=== PATIENT | female | born 1960 | race Hispanic/Latino ===

== ENCOUNTER 2018-08-14 13:56 | Inpatient (IN) | payer OTHER ==
[~2018-08-14] VITALS: Ht 154.9 cm; Wt 75.0 kg
[2018-08-14] MEDS: SODIUM CHLORIDE 0.9% 1000ML 1,000 ML IV SCH (03:00)
[~2018-08-14 13:56] MED LIST: AMLODIPINE PO; ASPI-1197 PO; ATOR10 PO; DULO60CA63 PO; LORA10TA7 PO; METF-444 PO
[2018-08-14 14:42] LABS: BASOPHILS % (AUTO) 1.9 % (0.0-5.0); EOSINOPHILS % (AUTO) 1.7 % (0.0-8.0); HEMATOCRIT 21.8 % (36-48); LYMPHOCYTES % (AUTO) 19.8 % (21.0-51.0); MEAN CORPUSCULAR HEMOGLOBIN 22.4 pg (27.0-33.0); MEAN CORPUSCULAR HGB CONC 30.2 g/dL (32.0-36.0); MEAN CORPUSCULAR VOLUME 74.4 fL (79-99); NEUTROPHILS % (AUTO) 65.6 % (40.0-77.0); PLATELET COUNT (AUTO) 192 K/uL (130-400); RED BLOOD CELL COUNT(AUTO) 2.92 MIL/uL (4.00-5.50); RED CELL DISTRIBUTION WIDTH 21.3 % (11.0-15.5); WHITE BLOOD COUNT (AUTO) 3.1 K/uL (4.8-10.8)
[2018-08-14 14:50] LABS: CREATININE 0.7 mg/dL (0.5-1.5); POTASSIUM 3.9 mmol/L (3.5-5.1)
[2018-08-14 14:55] LABS: ALBUMIN 2.1 g/dL (3.5-5.0); BILIRUBIN,TOTAL 1.1 mg/dL (0.2-1.0); TOTAL PROTEIN, SERUM 8.6 g/dL (6.0-8.3)
[2018-08-14] MEDS ORDERED: IOHEXOL-350 75 ML VIAL IV ONE (15:00)
[2018-08-14 15:02] LABS: APPEARANCE,URINE Clear (CLEAR); BILIRUBIN,URINE Moderate (NEGATIVE); COLOR,URINE Dark Yellow (YELLOW); GLUCOSE, URINE (UA) Negative (NEGATIVE); KETONES,URINE Trace mg/dL (NEGATIVE); LEUKOCYTE ESTERASE ,URINE Small (NEGATIVE); NITRATE,URINE Negative (NEGATIVE); OCCULT BLOOD,URINE Large (NEGATIVE); PH,URINE 6.5 (5.0-8.0); PROTEIN,URINE POS 1+ mg/dL (NEGATIVE)
[2018-08-14 15:20] LABS: BACTERIA,URINE Few /HPF (None Seen)
[2018-08-14 15:21] LABS: MUCUS,URINE Few LPF (None Seen)
[2018-08-14 16:47] LABS: INR 1.15 (0.85-1.15); PARTIAL THROMBOPLASTIN TIME 27.9 SEC (26.3-35.5)
[2018-08-14] MEDS ORDERED: DEXTROSE 50%-WATER 50 ML DISP.SYRIN IV PRN (18:15)
[2018-08-14] MEDS ORDERED: GLUCAGON 1MG KIT 1 MG ML IM PRN (18:15)
[2018-08-14] MEDS ORDERED: ONDANSETRON HCL 4 MG/2 ML VIAL IV PRN (18:15)
[2018-08-14] MEDS ORDERED: ACETAMINOPHEN 325 MG TAB PO PRN (18:15)
[2018-08-14 18:33] LABS: HEMOGLOBIN A1C 7.3 % (4.0-6.0)
[2018-08-14 18:45] LABS: % IRON SATURATION 10.1 % (22-44)
--- NOTE | 2018-08-14 18:55 | NUR ---
assessment: RECEIVED FROM THE ER DEPT VIA STRETCHER TO 322, TRANSFERRED TO BED, MADE COMFORTABLE. CALL VERONICA AT HER SIDE. EXPLAINED POC AND UNDERSTANDING VERBALIZED. PRBC'S INF WELL TO LAC, SITE HEALTHY. DENIES PAIN AT THIS TIME. I8N THE ROOM.
[2018-08-14 19:19] VITALS: BP 135/72
[2018-08-14 19:53] LABS: AMPHET/METH SCREEN,URINE NEGATIVE (NEGATIVE); BARBITURATE SCREEN, URINE NEGATIVE (NEGATIVE); BENZODIAZEPINES SCREEN,URINE NEGATIVE (NEGATIVE); CANNABINOID SCREEN,URINE NEGATIVE (NEGATIVE); COCAINE SCREEN,URINE NEGATIVE (NEGATIVE); OPIATE SCREEN,URINE NEGATIVE (NEGATIVE); PHENCYCLIDINE SCREEN,URINE NEGATIVE (NEGATIVE)
--- NOTE | 2018-08-14 20:00 | NUR ---
BLOOD TRANSFUSION: PRBC'S COMPLETED, LINE FLUSHED WITH NS.
[2018-08-14 20:01] VITALS: BP 110/66
[2018-08-14] MEDS ORDERED: LOSA25TA41 PO (20:17)
[2018-08-14] MEDS ORDERED: GLIM4TAB3 PO (20:19)
[2018-08-14] MEDS ORDERED: POTASSIUM CHLORIDE 20MEQ/100ML 100 ML IV PRN (20:45)
[2018-08-14] MEDS ORDERED: CHLORDIAZEPOXIDE HCL 25 MG CAP PO PRN ×4 (20:45)
[2018-08-14] MEDS ORDERED: PROMETHAZINE HCL 25 MG TABLET PO PRN (20:45)
[2018-08-14] MEDS ORDERED: LORAZEPAM 2 MG/ML 1 ML VIAL IVP PRN ×4 (20:45)
[2018-08-14] MEDS ORDERED: MAGNESIUM 2GM PREMIX 50ML 50 ML IV PRN (20:45)
[2018-08-14] MEDS ORDERED: LIDOCAINE HCL-MPF 1% 2ML VIAL IVP PRN (20:45)
[2018-08-14] MEDS ORDERED: POTASSIUM CHLORIDE 10% ELIXIR 20 MEQ/15 ML UDCUP PO PRN (20:45)
[2018-08-14] MEDS ORDERED: ACETAMINOPHEN EXTRA STRENGTH 500 MG TABLET PO PRN (20:45)
[2018-08-14] MEDS: FAMOTIDINE 20MG TAB 20 MG TAB PO SCH (21:00)
[2018-08-14] MEDS: INSULIN HUMULIN R 100 UNIT/ML 3ML SQ SCH (21:00)
--- NOTE | 2018-08-14 21:05 | NUR ---
RADIOLOGY: TAKEN TO RADIOLOGY VIA W/C
[2018-08-14] MEDS ORDERED: LEVOFLOXACIN 500 MG/D5W 100 ML 100 ML IV SCH (21:15)
[2018-08-14] MEDS: LEVOFLOXACIN 500 MG/D5W 100 ML 100 ML IV SCH (21:27)
[2018-08-15 00:05] VITALS: BP 121/69
[2018-08-15 03:53] VITALS: BP 126/74
[2018-08-15 05:18] LABS: HEMATOCRIT 27.8 % (36-48); MEAN CORPUSCULAR HEMOGLOBIN 25.5 pg (27.0-33.0); MEAN CORPUSCULAR HGB CONC 33.1 g/dL (32.0-36.0); MEAN CORPUSCULAR VOLUME 76.9 fL (79-99); NUCLEATED RED BLOOD CELLS 0.1 % (0.0-0.19); PLATELET COUNT (AUTO) 142 K/uL (130-400); RED BLOOD CELL COUNT(AUTO) 3.62 MIL/uL (4.00-5.50); RED CELL DISTRIBUTION WIDTH 19.6 % (11.0-15.5); WHITE BLOOD COUNT (AUTO) 2.8 K/uL (4.8-10.8)
[2018-08-15 05:24] LABS: ALBUMIN 1.9 g/dL (3.5-5.0); BILIRUBIN,TOTAL 2.2 mg/dL (0.2-1.0); CREATININE 0.6 mg/dL (0.5-1.5); MAGNESIUM 1.9 mg/dL (1.80-2.40); PHOSPHORUS 3.3 mg/dL (2.5-4.9); POTASSIUM 3.6 mmol/L (3.5-5.1); TOTAL PROTEIN, SERUM 8.1 g/dL (6.0-8.3)
[2018-08-15 05:51] LABS: BASOPHILS % (MANUAL) 3 % (0-2); EOSINOPHILS % (MANUAL) 2 % (1-6); LYMPHOCYTES % (MANUAL) 12 % (22-44); MAN.DIFF COMMENT-IMPRESSION MANUAL DIFFERENTIAL; MONOCYTES % (MANUAL) 9 % (2-9); SEGMENTED NEUTROPHILS % 74 % (40-70)
[2018-08-15 05:52] LABS: PLATELET MORPHOLOGY COMMENT ADEQUATE
[2018-08-15] MEDS: INSULIN HUMULIN R 100 UNIT/ML 3ML SQ SCH ×4 (06:43→21:00)
[2018-08-15 07:30] VITALS: BP 139/73
[2018-08-15] MEDS ORDERED: PNEUMOCOCCAL VACCINE POLYVALENT 0.5 ML/VIAL [PPV] IM ONE (09:00)
[2018-08-15] MEDS ORDERED: THIAMINE HCL 100 MG/ML 2ML VIAL IM SCH (09:00)
[2018-08-15] MEDS: MULTIVITAMIN TABLET PO SCH (10:13)
[2018-08-15] MEDS: FAMOTIDINE 20MG TAB 20 MG TAB PO SCH ×2 (10:13→21:11)
[2018-08-15] MEDS: FOLIC ACID 1 MG TABLET PO SCH (10:13)
[2018-08-15] MEDS: POTASSIUM CHLORIDE 20 MEQ ERTAB PO PRN ×2 (10:13→12:41)
[2018-08-15 11:00] VITALS: BP 127/70
--- NOTE | 2018-08-15 12:59 | NUR ---
DCP CM met with pt discussed dc plans. Pt is independent prior to admission, lives at home with spouse. Denies any equipments/services. Pt feels safe to go back home, still drives, spouse able to assist with transportation and needs. DC plan to home once stable. CM to cont to follow up. Addendum: 08/15/18 at 1300 by MARANDA FU LVN CM Amended: Links added.
[2018-08-15] MEDS: ACETAMINOPHEN 325 MG TAB PO PRN (15:50)
[2018-08-15 16:00] VITALS: BP 139/75
[2018-08-15] MEDS: SODIUM CHLORIDE 0.9% 1000ML 1,000 ML IV SCH (17:00)
[2018-08-15 17:59] LABS: HEMATOCRIT 29.5 % (36-48)
[2018-08-15 20:00] VITALS: BP 141/73
--- NOTE | 2018-08-15 20:10 | NUR ---
PM Assessment Received pt with spouse at the bedside, NS at 100cc/hr infusing well, routine assessment done, plan of care discuss, confirmed awareness plan for EGD in AM, reminded NPO post MD, agreed to have a shower by 0500. Also made aware reported scheduled Paracentesis re- scheduled for Friday as reported. Pt currently denies discomfort.
[2018-08-15] MEDS ORDERED: PNEUMOCOCCAL VACCINE POLYVALENT 0.5 ML/VIAL [PPV] ONE (20:29)
[2018-08-15] MEDS: LEVOFLOXACIN 500 MG/D5W 100 ML 100 ML IV SCH (21:11)
[2018-08-16] VITALS (17 sets, daily range): BP systolic 97–157; BP diastolic 45–81
[2018-08-16] MEDS: INSULIN HUMULIN R 100 UNIT/ML 3ML SQ SCH ×4 (05:37→20:30)
[2018-08-16] MEDS: SODIUM CHLORIDE 0.9% 1000ML 1,000 ML IV SCH ×2 (05:39→14:13)
[2018-08-16 06:25] LABS: BASOPHILS % (AUTO) 1.1 % (0.0-5.0); EOSINOPHILS % (AUTO) 1.5 % (0.0-8.0); HEMATOCRIT 31.5 % (36-48); LYMPHOCYTES % (AUTO) 25.8 % (21.0-51.0); MEAN CORPUSCULAR HEMOGLOBIN 24.6 pg (27.0-33.0); MEAN CORPUSCULAR HGB CONC 31.8 g/dL (32.0-36.0); MEAN CORPUSCULAR VOLUME 77.3 fL (79-99); MONOCYTES % (AUTO) 9.6 % (3.0-13.0); NUCLEATED RED BLOOD CELLS 0.1 % (0.0-0.19); PLATELET COUNT (AUTO) 207 K/uL (130-400); RED BLOOD CELL COUNT(AUTO) 4.08 MIL/uL (4.00-5.50); RED CELL DISTRIBUTION WIDTH 20.4 % (11.0-15.5); WHITE BLOOD COUNT (AUTO) 4.6 K/uL (4.8-10.8)
[2018-08-16] MEDS: ACETAMINOPHEN 325 MG TAB PO PRN (14:13)
[2018-08-16] MEDS: FAMOTIDINE 20MG TAB 20 MG TAB PO SCH ×2 (14:13→20:00)
[2018-08-16] MEDS: FOLIC ACID 1 MG TABLET PO SCH (14:13)
[2018-08-16] MEDS: MULTIVITAMIN TABLET PO SCH (14:13)
[2018-08-16] MEDS: LACTULOSE 20 GM/30 ML UDCUP PO SCH ×2 (15:00)
[2018-08-16] MEDS: THIAMINE HCL 100 MG/ML 2ML VIAL IV SCH (15:01)
[2018-08-16] MEDS ORDERED: MAGNESIUM CITRATE 296 ML SOLUTION PO ONE (16:00)
[2018-08-16] MEDS ORDERED: PEG 3350/NA SULF,BICARB,CL/KCL 4000 ML SOLN PO ONE (17:00)
[2018-08-16] MEDS ORDERED: PEG 3350/NA SULF,BICARB,CL/KCL 4000 ML SOLN PO SCH (17:00)
[2018-08-16] MEDS: BISACODYL 5 MG TABLET.DR PO SCH (18:51)
[2018-08-16] MEDS: PROPRANOLOL HCL 10 MG TAB PO SCH (20:00)
[2018-08-16] MEDS: LEVOFLOXACIN 500 MG/D5W 100 ML 100 ML IV SCH (20:00)
[2018-08-17] VITALS (21 sets, daily range): BP systolic 103–146; BP diastolic 45–80
[2018-08-17] MEDS: SODIUM CHLORIDE 0.9% 1000ML 1,000 ML IV SCH ×2 (02:59→15:40)
[2018-08-17] MEDS: INSULIN HUMULIN R 100 UNIT/ML 3ML SQ SCH ×4 (05:41→21:00)
[2018-08-17] MEDS: FOLIC ACID 1 MG TABLET PO SCH (09:00)
[2018-08-17] MEDS: PANTOPRAZOLE SODIUM 40 MG TABLET.DR PO SCH (09:00)
[2018-08-17] MEDS: PROPRANOLOL HCL 10 MG TAB PO SCH ×2 (09:00→22:16)
[2018-08-17] MEDS: FAMOTIDINE 20MG TAB 20 MG TAB PO SCH ×2 (09:00→22:16)
[2018-08-17] MEDS: MULTIVITAMIN TABLET PO SCH (09:00)
--- NOTE | 2018-08-17 09:23 | NUR ---
U/S GD PARACENTESIS PROCEDURE PERFORMED BY DR MINA PUNCTURE SITE RIGHT ABDOMEN SITE AND PATIENT TOLERATED PROCEDURE WELL. TOTAL REMOVED 3.6LITERS OF ASCITES FLUID. END OF PROCEDURE AT 0910. CATHETER REMOVED AND DRESSING APPLIED. NO BLEEDING NOTED. REPORT GIVEN TO NUBIA PLAZA RN AND PATIENT TRANSPORTED TO ROOM 322 VIA WHEELCHAIR. AAO X3 WITH NO C/O PAIN. SPECIMEN SENT TO LAB.
[2018-08-17] MEDS ORDERED: LIDOCAINE HCL 1% 20 ML VIAL ONE (09:36)
[2018-08-17] MEDS: THIAMINE HCL 100 MG/ML 2ML VIAL IV SCH (09:56)
[2018-08-17] MEDS: LACTULOSE 20 GM/30 ML UDCUP PO SCH ×3 (14:00→21:00)
--- NOTE | 2018-08-17 17:48 | NUR ---
Pt AOX3, with stable VS, Pt off the floor for colonoscopy procedure by Dr. Warner.
[2018-08-17] MEDS ORDERED: FENTANYL CITRATE PF 50 MCG/1 ML 2ML VIAL ONE ×2 (18:47→19:25)
[2018-08-17] MEDS ORDERED: MIDAZOLAM HCL 1 MG/ML 2ML VIAL ONE ×2 (18:47→19:22)
[2018-08-17] MEDS: BISACODYL 5 MG TABLET.DR PO SCH (19:00)
--- NOTE | 2018-08-17 20:00 | NUR ---
Pt Update Pt undergoing colonoscopy at the time of shift change, Report given to primary nurse, nursing will continue to follow up, care endorsed.
[2018-08-17] MEDS: LEVOFLOXACIN 500 MG/D5W 100 ML 100 ML IV SCH (22:16)
[2018-08-18] VITALS (9 sets, daily range): BP systolic 113–134; BP diastolic 58–72
[2018-08-18 04:55] LABS: BASOPHILS % (AUTO) 1.9 % (0.0-5.0); EOSINOPHILS % (AUTO) 1.8 % (0.0-8.0); HEMATOCRIT 28.3 % (36-48); LYMPHOCYTES % (AUTO) 27.6 % (21.0-51.0); MEAN CORPUSCULAR HEMOGLOBIN 24.6 pg (27.0-33.0); MEAN CORPUSCULAR HGB CONC 31.3 g/dL (32.0-36.0); MEAN CORPUSCULAR VOLUME 78.8 fL (79-99); MONOCYTES % (AUTO) 12.3 % (3.0-13.0); NEUTROPHILS % (AUTO) 56.4 % (40.0-77.0); NUCLEATED RED BLOOD CELLS 0.1 % (0.0-0.19); PLATELET COUNT (AUTO) 159 K/uL (130-400); RED BLOOD CELL COUNT(AUTO) 3.59 MIL/uL (4.00-5.50); RED CELL DISTRIBUTION WIDTH 20.6 % (11.0-15.5); WHITE BLOOD COUNT (AUTO) 2.9 K/uL (4.8-10.8)
[2018-08-18] MEDS: SODIUM CHLORIDE 0.9% 1000ML 1,000 ML IV SCH (05:05)
[2018-08-18 05:15] LABS: ALBUMIN 1.7 g/dL (3.5-5.0); BILIRUBIN,TOTAL 1.7 mg/dL (0.2-1.0); CREATININE 0.5 mg/dL (0.5-1.5); POTASSIUM 3.2 mmol/L (3.5-5.1); TOTAL PROTEIN, SERUM 7.1 g/dL (6.0-8.3)
[2018-08-18 05:43] LABS: BASOPHILS % (MANUAL) 2 % (0-2); EOSINOPHILS % (MANUAL) 2 % (1-6); LYMPHOCYTES % (MANUAL) 13 % (22-44); MAN.DIFF COMMENT-IMPRESSION MANUAL DIFFERENTIAL; MONOCYTES % (MANUAL) 11 % (2-9); SEGMENTED NEUTROPHILS % 72 % (40-70)
[2018-08-18] MEDS: INSULIN HUMULIN R 100 UNIT/ML 3ML SQ SCH ×3 (06:09→17:42)
[2018-08-18] MEDS: POTASSIUM CHLORIDE 20 MEQ ERTAB PO PRN ×2 (06:52→11:02)
[2018-08-18] MEDS: PANTOPRAZOLE SODIUM 40 MG TABLET.DR PO SCH (10:46)
[2018-08-18] MEDS: MULTIVITAMIN TABLET PO SCH (10:46)
[2018-08-18] MEDS: FAMOTIDINE 20MG TAB 20 MG TAB PO SCH (10:47)
[2018-08-18] MEDS: PROPRANOLOL HCL 10 MG TAB PO SCH (10:47)
[2018-08-18] MEDS: LACTULOSE 20 GM/30 ML UDCUP PO SCH ×3 (10:47→15:00)
--- NOTE | 2018-08-18 16:19 | NUR ---
RDSCREEN - ALB 1.7 Upon visit, patient reports good PO intake (75%) with no report of GI distress. Patient tolerating full liquid diet; rec to advance diet as tolerated to 75gm CCD, Heart heathy diet. Patient LBM 08/17/18. Patient monitored labs: K 3.2, Ca 7.4, T. Bili 1.7, AST 5, Alk 149, Alb 1.7. RD provided Cirrhosis diet education to patient. Patient verbalized understanding. RD to continue to monitor. Please notify RD as nutritional concerns arise. Thank you. Addendum: 08/18/18 at [address] RD Amended: Links added.
--- NOTE | 2018-08-18 16:32 | NUR ---
Diet Education Patient with Diet education request. JULITA provided Cirrhosis diet education. Reference materials and handouts were provided and reviewed with patient. Patient verbalized understanding. RD to follow-up. Addendum: 08/18/18 at [address] RD Amended: Links added.
== END 2018-08-18 18:40 | disposition home or self-care (01) | DRG 988 ==
LOC: EDH 13:56 → OBSVTOIN 16:45 → EDHIP 16:45 → 3DH 17:18
PROVIDERS: ADMIT Internal Medicine; ATTEND Internal Medicine
PROC: 30233N1 Transfusion of Nonautologous Red Blood Cells into Peripheral Vein, Percutaneous Approach (ICD-10-PCS; 2018-08-14)
PROC: 3E0234Z Introduction of Serum, Toxoid and Vaccine into Muscle, Percutaneous Approach (ICD-10-PCS; 2018-08-15)
PROC: 06L38CZ Occlusion of Esophageal Vein with Extraluminal Device, Via Natural or Artificial Opening Endoscopic (ICD-10-PCS; 2018-08-16)
PROC: 0W9G3ZZ Drainage of Peritoneal Cavity, Percutaneous Approach (ICD-10-PCS; principal; 2018-08-17)
PROC: 0DBC8ZZ Excision of Ileocecal Valve, Via Natural or Artificial Opening Endoscopic (ICD-10-PCS; 2018-08-17)
PROC: 0DBK8ZZ Excision of Ascending Colon, Via Natural or Artificial Opening Endoscopic (ICD-10-PCS; 2018-08-17)
PROC: 0DBP8ZZ Excision of Rectum, Via Natural or Artificial Opening Endoscopic (ICD-10-PCS; 2018-08-17)
PROC: 0DBH8ZZ Excision of Cecum, Via Natural or Artificial Opening Endoscopic (ICD-10-PCS; 2018-08-17)
DX: K70.31 Alcoholic cirrhosis of liver with ascites (principal); I85.10 Secondary esophageal varices without bleeding; K76.6 Portal hypertension; K27.9 Peptic ulcer, site unspecified, unspecified as acute or chronic, without hemorrhage or perforation; D50.9 Iron deficiency anemia, unspecified; E11.9 Type 2 diabetes mellitus without complications; F10.20 Alcohol dependence, uncomplicated; I10 Essential (primary) hypertension; D12.0 Benign neoplasm of cecum; D12.2 Benign neoplasm of ascending colon; K62.1 Rectal polyp; K64.0 First degree hemorrhoids; K57.30 Diverticulosis of large intestine without perforation or abscess without bleeding; K29.00 Acute gastritis without bleeding; K31.89 Other diseases of stomach and duodenum; F32.9 Major depressive disorder, single episode, unspecified; K55.20 Angiodysplasia of colon without hemorrhage; Z23 Encounter for immunization; Z90.710 Acquired absence of both cervix and uterus; Z86.010 Personal history of colon polyps; Z83.3 Family history of diabetes mellitus; Z82.5 Family history of asthma and other chronic lower respiratory diseases; Z82.49 Family history of ischemic heart disease and other diseases of the circulatory system; Z82.3 Family history of stroke; Z82.0 Family history of epilepsy and other diseases of the nervous system; Z80.1 Family history of malignant neoplasm of trachea, bronchus and lung
CPT/HCPCS: 36415; 43244; 45380; 49083; 71046; 74177; 80053; 80305; 81001; 82140; 82270; 82550; 82728; 82948; 83036; 83540; 83550; 83690; 83735; 84100; 84484; 85014; 85018; 85025; 85610; 85730; 86850; 86900; 86901; 86922; 87040; 87088; 88108; 88305; 90732; 93005; 99152; 99153; G0378; J1815; J1956; J2250; J3010; J3411; J3475; J7030; P9016; Q9967

== ENCOUNTER 2018-10-08 14:05 | Emergency (ER) | payer OTHER ==
[~2018-10-08 14:05] MED LIST changes: -ATOR10 PO; +GLIM4TAB3 PO; -LORA10TA7 PO; +LOSA25TA41 PO
[2018-10-08] MEDS ORDERED: ONDANSETRON HCL 4 MG/2 ML VIAL ONE (14:47)
[2018-10-08 15:14] LABS: POTASSIUM 4.5 mmol/L (3.5-5.1)
[2018-10-08 15:18] LABS: ALBUMIN 2.2 g/dL (3.5-5.0); BILIRUBIN,TOTAL 1.9 mg/dL (0.2-1.0); TOTAL PROTEIN, SERUM 8.4 g/dL (6.0-8.3)
[2018-10-08 15:23] LABS: BASOPHILS % (AUTO) 0.7 % (0.0-5.0); EOSINOPHILS % (AUTO) 1.4 % (0.0-8.0); HEMATOCRIT 34.3 % (36-48); LYMPHOCYTES % (AUTO) 14.9 % (21.0-51.0); MEAN CORPUSCULAR HEMOGLOBIN 30.9 pg (27.0-33.0); MEAN CORPUSCULAR HGB CONC 34.3 g/dL (32.0-36.0); MEAN CORPUSCULAR VOLUME 90.1 fL (79-99); NUCLEATED RED BLOOD CELLS 0.1 % (0.0-0.19); PLATELET COUNT (AUTO) 226 K/uL (130-400); RED CELL DISTRIBUTION WIDTH 20.9 % (11.0-15.5); WHITE BLOOD COUNT (AUTO) 6.3 K/uL (4.8-10.8)
[2018-10-08 15:40] LABS: APPEARANCE,URINE SL CLOUDY (CLEAR); BILIRUBIN,URINE SMALL (NEGATIVE); COLOR,URINE YELLOW (YELLOW); GLUCOSE, URINE (UA) NEGATIVE (NEGATIVE); KETONES,URINE 5 mg/dL (NEGATIVE); LEUKOCYTE ESTERASE ,URINE NEGATIVE (NEGATIVE); NITRATE,URINE NEGATIVE (NEGATIVE); OCCULT BLOOD,URINE MODERATE (NEGATIVE); PROTEIN,URINE TRACE mg/dL (NEGATIVE)
[2018-10-08 16:11] LABS: BACTERIA,URINE Few /HPF (None Seen); SQUAMOUS EPITHELIAL CELL,UR Few /HPF (0-2); WBC,URINE 0-1 /HPF (0-1)
[2018-10-08 16:12] LABS: HYALINE CASTS, URINE 26-50 /LPF (0-1 /LPF); MUCUS,URINE Few LPF (None Seen)
== END 2018-10-08 16:38 | disposition home or self-care (01) ==
LOC: EDH 14:05
DX: R11.2 Nausea with vomiting, unspecified (principal); R19.7 Diarrhea, unspecified; I10 Essential (primary) hypertension; F10.20 Alcohol dependence, uncomplicated; Z98.890 Other specified postprocedural states; Z90.49 Acquired absence of other specified parts of digestive tract
CPT/HCPCS: 36415; 80053; 81001; 83690; 85025; 96374; 99284; J2405

== ENCOUNTER 2018-10-26 20:38 | Emergency (ER) | payer OTHER ==
[~2018-10-26 20:38] MED LIST changes: -DULO60CA63 PO; +DULO60CA64 PO
[2018-10-26 22:00] LABS: BASOPHILS % (AUTO) 1.1 % (0.0-5.0); EOSINOPHILS % (AUTO) 1.4 % (0.0-8.0); HEMATOCRIT 31.3 % (36-48); LYMPHOCYTES % (AUTO) 18.9 % (21.0-51.0); MEAN CORPUSCULAR HEMOGLOBIN 30.5 pg (27.0-33.0); MEAN CORPUSCULAR HGB CONC 33.8 g/dL (32.0-36.0); MEAN CORPUSCULAR VOLUME 90.1 fL (79-99); MONOCYTES % (AUTO) 12.6 % (3.0-13.0); PLATELET COUNT (AUTO) 223 K/uL (130-400); RED BLOOD CELL COUNT(AUTO) 3.47 MIL/uL (4.00-5.50); RED CELL DISTRIBUTION WIDTH 15.4 % (11.0-15.5); WHITE BLOOD COUNT (AUTO) 5.7 K/uL (4.8-10.8)
[2018-10-26 22:11] LABS: CREATININE 2.2 mg/dL (0.5-1.5); POTASSIUM 5.2 mmol/L (3.5-5.1)
[2018-10-26 22:14] LABS: APPEARANCE,URINE Turbid (CLEAR); BILIRUBIN,URINE Small (NEGATIVE); COLOR,URINE Dark Yellow (YELLOW); GLUCOSE, URINE (UA) Negative (NEGATIVE); KETONES,URINE 15 mg/dL (NEGATIVE); LEUKOCYTE ESTERASE ,URINE Small (NEGATIVE); NITRATE,URINE Negative (NEGATIVE); OCCULT BLOOD,URINE Negative (NEGATIVE); PROTEIN,URINE Trace mg/dL (NEGATIVE)
[2018-10-26 22:15] LABS: ALBUMIN 1.6 g/dL (3.5-5.0); BILIRUBIN,DIRECT 1.2 mg/dL (0.0-0.3); BILIRUBIN,TOTAL 2.1 mg/dL (0.2-1.0); TOTAL PROTEIN, SERUM 7.7 g/dL (6.0-8.3)
[2018-10-26 22:28] LABS: B-TYPE NATRIURETIC PEPTIDE 20 pg/mL (0-100)
[2018-10-26 22:29] LABS: INR 1.13 (0.85-1.15); PARTIAL THROMBOPLASTIN TIME 31.2 SEC (26.3-35.5); PROTHROMBIN TIME 11.8 SEC (9.6-11.6)
[2018-10-26 22:50] LABS: BACTERIA,URINE Moderate /HPF (None Seen); RBC,URINE 0-1 /HPF (0-1)
== END 2018-10-27 01:17 | disposition home or self-care (01) ==
LOC: EDH 20:38
DX: R18.8 Other ascites (principal); I10 Essential (primary) hypertension; E11.9 Type 2 diabetes mellitus without complications; Z90.49 Acquired absence of other specified parts of digestive tract
CPT/HCPCS: 36415; 71045; 80048; 80076; 81001; 82140; 82550; 83690; 83880; 84484; 85025; 85610; 85730; 93005